=== PATIENT | male | born 1975 | race Two or more races ===

== ENCOUNTER → 2021-03-23 | Outpatient (CLI) | payer SELFPAY ==
--- NOTE | 2021-03-23 12:46 | RAD ---
EXAM: Nuclear gastric emptying scan. HISTORY: Bloating. Nausea and fatigue. COMPARISON: None. TECHNIQUE: Serial static images were obtained over the stomach following oral administration of 2.0 m Ci 99m-Tc sulfur colloid. FINDINGS: The stomach empties into the small bowel without evidence of reflux in the area of the esop hagus. Gastric retention percents: 1 hour 24% (normal range 34.8-91%) 2 hour 7% (normal range 2.7-60%) 3 hour 4% (normal range 0.5-28%) The estimated time for half emptying of gastric contents, i.e. 'gastric emptying time' is 42 minutes (normal is 66 +/- 22 minutes). IMPRESSION: Normal gastric emptying scan. Electronically signed by: Munira Ronquillo MD (03/23/2021 12:44 PM) [id number]
== END ==
LOC: NM 07:54
PROVIDERS: ATTEND Internal Medicine Gastroenterology
DX: R11.0 Nausea (principal); R14.0 Abdominal distension (gaseous)
CPT/HCPCS: 78264; A9541